=== PATIENT | male | born 1940 | race Two or more races ===

== ENCOUNTER 2021-03-01 21:15 | Inpatient (IN) | payer OTHER ==
[~2021-03-01] VITALS: Ht 182.9 cm; Wt 108.2 kg
[2021-03-01] MEDS ORDERED: SODIUM CHLORIDE 0.9% 500 ML IV ONE (21:45)
[2021-03-01] MEDS ORDERED: PROMETHAZINE HCL 25 MG/ML 1ML IM ONE (21:45)
[2021-03-01 22:50] LABS: Basophils # (auto) 0 10 ^3/uL (0-0.2); Basophils % (auto) 0.1 % (0.0-2.0); Eosinophils # (auto) 0 10 ^3/uL (0-0.8); Eosinophils % (auto) 0.1 % (0.0-7.0); Hematocrit 49.6 % (41.0-53.0); Hemoglobin 15.8 g/dL (13.5-17.5); Lymphocytes # (auto) 0.6 10 ^3/uL (0.4-5.4); Lymphocytes % (auto) 5.3 % (10.0-50.0); Mean Corpuscular Hemoglobin 28.7 pg (28.0-32.0); Mean Corpuscular Hgb Conc. 31.8 g/dL (32.0-36.0); Mean Corpuscular Volume 90.2 fL (80.0-100.0); Monocytes # (auto) 0.6 10 ^3/uL (0-1.3); Monocytes % (auto) 5.6 % (0.0-12.0); Neutrophils # (auto) 9.9 10 ^3/uL (1.6-8.6); Neutrophils % (auto) 88.9 % (37.0-80.0); White Blood Cell 11.1 10^3/uL (4.4-10.8)
[2021-03-01 23:07] LABS: INR 0.97 (0.9-1.15); Partial Thromboplastin Time 25.6 sec (23.6-33.0)
[2021-03-01 23:10] LABS: Alanine Aminotransferase 23 U/L (16-61); Amylase 70 U/L (25-115); Anion Gap 8 (5-15); Aspartate Aminotransferase 20 U/L (15-37); Blood Alcohol < 3.0 mg/dL (0-5); Blood Urea Nitrogen 26 mg/dL (7-18); Calcium 9.2 mg/dL (8.5-10.1); Carbon Dioxide 25 mmol/L (21-32); Chloride 109 mmol/L (98-107); GFR African American 53 mL/min; GFR Non-African American 44 mL/min; Glucose 147 mg/dL (74-106); Lipase 169 U/L (73-393); Magnesium 2.2 mg/dL (1.6-2.6); Potassium 4.4 mmol/L (3.5-5.1); Sodium 142 mmol/L (136-145)
[2021-03-01 23:13] LABS: Lactic Acid w/Reflex 2.3 mmol/L (0.4-2.0)
[2021-03-01 23:14] LABS: Alkaline Phosphatase 100 U/L (45-117); Bilirubin, Total 0.4 mg/dL (0.2-1.0); Total Protein 8.2 g/dL (6.4-8.2)
[2021-03-02 00:47] LABS: Urine Bacteria NONE SEEN /hpf (None Seen); Urine Blood TRACE /uL (Negative); Urine Specific Gravity 1.016 (1.001-1.035); Urine WBC 3 /hpf (0 - 3)
[2021-03-02 00:59] LABS: Alcohol, Urine < 3.0 mg/dL (0-10); Amphetamine Screen, Urine NEGATIVE (NEGATIVE); Barbiturate Scree,Urine NEGATIVE (NEGATIVE); Benzodiazephine Screen, Urine NEGATIVE (NEGATIVE); Cannabinoid Screen, Urine NEGATIVE (NEGATIVE); Cocaine Screen, Urine NEGATIVE (NEGATIVE); Opiate Scree,Urine NEGATIVE (NEGATIVE); Phencyclidine Screen, Urine NEGATIVE (NEGATIVE)
[2021-03-02] MEDS ORDERED: SODIUM CHLORIDE 0.9% 1,000 ML IV ONE (04:30)
[2021-03-02] MEDS ORDERED: LORazepam 2MG/ML-1ML VIAL IM ONE (16:15)
[2021-03-02] MEDS ORDERED: HALOPERIDOL LACTATE 5 MG/ML INJ VIAL IM ONE ×2 (16:15→22:15)
[2021-03-02] MEDS ORDERED: diphenhdrAMINE HCL 50 MG/1 ML VL IV ONE ×2 (16:15→22:15)
[2021-03-02] MEDS ORDERED: HYDROcodone-ACET 5/325MG TAB PO ONE (18:00)
[2021-03-02] MEDS ORDERED: LORazepam 2MG/ML-1ML VIAL IV ONE (22:15)
[2021-03-02] MEDS ORDERED: HYDROmorphone HCL 2 MG/ML VL IV ONE (23:45)
[2021-03-02] MEDS ORDERED: ONDANSETRON HCL 4 MG/2 ML VIAL IV ONE (23:45)
[2021-03-03] MEDS ORDERED: HALOPERIDOL LACTATE 5 MG/ML INJ VIAL IM ONE (21:15)
[2021-03-03] MEDS ORDERED: LORazepam 2MG/ML-1ML VIAL IV ONE (21:15)
[2021-03-03] MEDS ORDERED: diphenhdrAMINE HCL 50 MG/1 ML VL IV ONE (21:15)
[2021-03-03] MEDS ORDERED: cloNIDine HCL 0.1 MG TAB PO ONE (22:00)
[2021-03-04] MEDS ORDERED: diphenhdrAMINE HCL 50 MG/1 ML VL ONE (01:40)
[2021-03-04] MEDS ORDERED: LORazepam 2MG/ML-1ML VIAL ONE (01:41)
[2021-03-04] MEDS ORDERED: diphenhdrAMINE HCL 50 MG/1 ML VL IV ONE (02:00)
[2021-03-04] MEDS ORDERED: LORazepam 2MG/ML-1ML VIAL IV ONE ×3 (02:00→19:00)
[2021-03-04] MEDS ORDERED: ONDANSETRON HCL 4 MG/2 ML VIAL IV ONE (03:15)
[2021-03-04] MEDS ORDERED: HYDROmorphone HCL 2 MG/ML VL IV ONE ×2 (03:15→18:45)
[2021-03-04] MEDS ORDERED: cloNIDine HCL 0.1 MG TAB ONE (15:46)
[2021-03-04] MEDS ORDERED: cloNIDine HCL 0.1 MG TAB PO ONE (16:00)
[2021-03-05] MEDS ORDERED: HYDROmorphone HCL 2 MG/ML VL IV ONE ×2 (01:45→23:00)
[2021-03-05] MEDS ORDERED: LORazepam 2MG/ML-1ML VIAL ONE (10:07)
[2021-03-05] MEDS: LORazepam 2MG/ML-1ML VIAL IV PRN ×2 (10:18→23:33)
[2021-03-05] MEDS ORDERED: cloNIDine HCL 0.1 MG TAB ONE (16:21)
[2021-03-05] MEDS ORDERED: cloNIDine HCL 0.1 MG TAB PO ONE (16:30)
[2021-03-05] MEDS ORDERED: LORazepam 0.5 MG TAB PO ONE (22:45)
[2021-03-05] MEDS ORDERED: HYDROcodone-ACET 5/325MG TAB PO ONE (22:45)
[2021-03-05] MEDS ORDERED: hydrALAZINE HCL 20 MG/ML VL IV ONE (23:45)
[2021-03-06] MEDS ORDERED: HALOPERIDOL LACTATE 5 MG/ML INJ VIAL IM ONE (04:00)
[2021-03-06] MEDS: LORazepam 2MG/ML-1ML VIAL IV PRN (09:10)
[2021-03-06 10:28] LABS: Basophils # (auto) 0 10 ^3/uL (0-0.2); Eosinophils # (auto) 0 10 ^3/uL (0-0.8); Hematocrit 46.1 % (41.0-53.0); Hemoglobin 15.3 g/dL (13.5-17.5); Lymphocytes # (auto) 0.5 10 ^3/uL (0.4-5.4); Lymphocytes % (auto) 4.1 % (10.0-50.0); Mean Corpuscular Hgb Conc. 33.1 g/dL (32.0-36.0); Mean Corpuscular Volume 90.7 fL (80.0-100.0); Monocytes # (auto) 1.5 10 ^3/uL (0-1.3); Monocytes % (auto) 11.8 % (0.0-12.0); Neutrophils # (auto) 10.4 10 ^3/uL (1.6-8.6); Neutrophils % (auto) 84.1 % (37.0-80.0); Red Blood Cells 5.08 10^6/uL (4.5-5.90); Red Cell Distribution Width 15.6 % (11.8-14.3); White Blood Cell 12.4 10^3/uL (4.4-10.8)
[2021-03-06 10:56] LABS: Potassium 3.7 mmol/L (3.5-5.1)
[2021-03-06 11:09] LABS: BUN/Creatinine Ratio 18.9; Bilirubin, Total 0.8 mg/dL (0.2-1.0); Calcium 9.2 mg/dL (8.5-10.1); Total Protein 7.4 g/dL (6.4-8.2)
[2021-03-06] MEDS ORDERED: cefTRIAXone 1GM/50ML D5W 50 ML IV ONE (13:30)
[2021-03-06] MEDS ORDERED: CABE0.5T PO (14:35)
[2021-03-06] MEDS ORDERED: TEMA15CA PO (14:35)
[2021-03-06] MEDS ORDERED: APIX5TAB PO (14:35)
[2021-03-06] MEDS ORDERED: LORA1TAB23 PO (14:35)
[2021-03-06] MEDS ORDERED: LACT10SO3 PO (14:35)
[2021-03-06] MEDS ORDERED: BUSP10TA90 PO (14:35)
[2021-03-06] MEDS ORDERED: HYDR50TA15 PO (14:35)
[2021-03-06] MEDS ORDERED: ATOR40TA52 PO (14:35)
[2021-03-06] MEDS ORDERED: QUET100T47 PO (14:35)
[2021-03-06] MEDS ORDERED: LABE200T6 PO (14:35)
[2021-03-06] MEDS ORDERED: HYDR-4833 PO (14:35)
[2021-03-06] MEDS ORDERED: AMLO-496 PO (14:35)
[2021-03-06] MEDS ORDERED: SENN-79 PO (14:35)
[2021-03-06] MEDS ORDERED: HYDR25TA4 PO (14:35)
[2021-03-06] MEDS ORDERED: LABETALOL HCL 5 MG/ML 4ML SYRINGE IV ONE (16:00)
[2021-03-06] MEDS: SODIUM CHLORIDE 0.9% 1,000 ML IV SCH (16:14)
[2021-03-06] MEDS ORDERED: LORazepam 0.5 MG TAB PO PRN (17:45)
[2021-03-06] MEDS: cefTRIAXone 1GM/50ML D5W 50 ML IV SCH (21:45)
[2021-03-06] MEDS: LABETALOL HCL 200 MG TAB PO SCH (21:47)
[2021-03-06] MEDS: ATORVASTATIN 20 MG TAB PO SCH (21:47)
[2021-03-06] MEDS: busPIRone HCL 10 MG TAB PO SCH (21:47)
[2021-03-06] MEDS: APIXABAN 5 MG TAB PO SCH (21:47)
[2021-03-06] MEDS: QUEtiapine FUMARATE 100 MG TAB PO SCH (21:48)
[2021-03-07] MEDS: SODIUM CHLORIDE 0.9% 1,000 ML IV SCH ×3 (02:11→17:15)
[2021-03-07] MEDS ORDERED: LABETALOL HCL 5 MG/ML 4ML SYRINGE IV ONE ×2 (03:45→05:00)
[2021-03-07] MEDS: LORazepam 2MG/ML-1ML VIAL IV PRN ×2 (05:09→20:19)
[2021-03-07] MEDS: busPIRone HCL 10 MG TAB PO SCH ×3 (06:00→22:45)
[2021-03-07] MEDS ORDERED: LABETALOL HCL 5 MG/ML 4ML SYRINGE IV PRN (08:45)
[2021-03-07] MEDS ORDERED: NITROGLYCERIN 0.4 MG SL TAB SL PRN (08:45)
[2021-03-07] MEDS ORDERED: MORPHINE SULFATE INJECTION 2 MG/ML SYRG IV PRN (08:45)
[2021-03-07 09:27] LABS: Basophils # (auto) 0 10 ^3/uL (0-0.2); Basophils % (auto) 0.2 % (0.0-2.0); Eosinophils # (auto) 0 10 ^3/uL (0-0.8); Lymphocytes # (auto) 0.6 10 ^3/uL (0.4-5.4); Lymphocytes % (auto) 5.4 % (10.0-50.0); Mean Corpuscular Hemoglobin 29.2 pg (28.0-32.0); Mean Corpuscular Hgb Conc. 32.6 g/dL (32.0-36.0); Mean Corpuscular Volume 89.5 fL (80.0-100.0); Monocytes # (auto) 1.6 10 ^3/uL (0-1.3); Monocytes % (auto) 13.2 % (0.0-12.0); Neutrophils # (auto) 9.5 10 ^3/uL (1.6-8.6); Neutrophils % (auto) 81.2 % (37.0-80.0); Red Blood Cells 5.14 10^6/uL (4.5-5.90); Red Cell Distribution Width 15.8 % (11.8-14.3); White Blood Cell 11.8 10^3/uL (4.4-10.8)
[2021-03-07 09:51] LABS: BUN/Creatinine Ratio 23.6; Calcium 9.1 mg/dL (8.5-10.1); Potassium 3.6 mmol/L (3.5-5.1)
[2021-03-07] MEDS: HCTZ 25 MG TAB PO SCH (10:00)
[2021-03-07] MEDS: LABETALOL HCL 200 MG TAB PO SCH ×2 (10:00→22:45)
[2021-03-07] MEDS: amLODIPine BESYLATE 5 MG TAB PO SCH (10:00)
[2021-03-07] MEDS: APIXABAN 5 MG TAB PO SCH ×2 (10:00→22:44)
[2021-03-07] MEDS: cefTRIAXone 1GM/50ML D5W 50 ML IV SCH ×2 (10:14→22:41)
[2021-03-07] MEDS: hydrALAZINE HCL 25 MG TAB PO PRN (11:49)
[2021-03-07] MEDS: HYDROcodone-ACET 5/325MG TAB PO PRN (13:40)
[2021-03-07 17:01] VITALS: BP 124/59
[2021-03-07 22:00] VITALS: BP 156/78
[2021-03-07] MEDS: QUEtiapine FUMARATE 100 MG TAB PO SCH (22:41)
[2021-03-07] MEDS: ATORVASTATIN 20 MG TAB PO SCH (22:41)
[2021-03-08] MEDS: hydrALAZINE HCL 25 MG TAB PO PRN (00:41)
[2021-03-08] MEDS: SODIUM CHLORIDE 0.9% 1,000 ML IV SCH ×2 (02:18→19:05)
[2021-03-08 05:00] VITALS: BP 142/73
[2021-03-08] MEDS: busPIRone HCL 10 MG TAB PO SCH ×4 (05:58→22:25)
[2021-03-08 09:00] VITALS: BP 161/101
[2021-03-08] MEDS: APIXABAN 5 MG TAB PO SCH ×2 (09:11→22:25)
[2021-03-08] MEDS: cefTRIAXone 1GM/50ML D5W 50 ML IV SCH (09:11)
[2021-03-08] MEDS: HCTZ 25 MG TAB PO SCH (09:12)
[2021-03-08] MEDS: amLODIPine BESYLATE 5 MG TAB PO SCH (09:15)
[2021-03-08] MEDS: LABETALOL HCL 200 MG TAB PO SCH ×2 (09:15→22:26)
[2021-03-08 11:40] LABS: Basophils # (auto) 0 10 ^3/uL (0-0.2); Basophils % (auto) 0.1 % (0.0-2.0); Eosinophils # (auto) 0 10 ^3/uL (0-0.8); Eosinophils % (auto) 0.1 % (0.0-7.0); Hematocrit 41.3 % (41.0-53.0); Hemoglobin 13.6 g/dL (13.5-17.5); Lymphocytes # (auto) 0.6 10 ^3/uL (0.4-5.4); Lymphocytes % (auto) 7.1 % (10.0-50.0); Mean Corpuscular Hemoglobin 29.6 pg (28.0-32.0); Mean Corpuscular Hgb Conc. 32.9 g/dL (32.0-36.0); Mean Corpuscular Volume 90.1 fL (80.0-100.0); Monocytes % (auto) 11.7 % (0.0-12.0); Neutrophils # (auto) 7.2 10 ^3/uL (1.6-8.6); Nucleated Red Blood Cells % 0.1 %; Red Blood Cells 4.59 10^6/uL (4.5-5.90); Red Cell Distribution Width 16.2 % (11.8-14.3); White Blood Cell 8.9 10^3/uL (4.4-10.8)
[2021-03-08 11:53] LABS: BUN/Creatinine Ratio 29.5; Calcium 8.5 mg/dL (8.5-10.1); Potassium 3.4 mmol/L (3.5-5.1)
[2021-03-08 13:00] VITALS: BP 132/75
[2021-03-08 16:45] VITALS: BP 146/71
[2021-03-08] MEDS: HYDROcodone-ACET 5/325MG TAB PO PRN (20:13)
[2021-03-08 22:00] VITALS: BP 159/71
[2021-03-08] MEDS: QUEtiapine FUMARATE 100 MG TAB PO SCH (22:25)
[2021-03-08] MEDS: ATORVASTATIN 20 MG TAB PO SCH (22:25)
[2021-03-09] VITALS (8 sets, daily range): BP systolic 119–155; BP diastolic 56–102
[2021-03-09] MEDS: SODIUM CHLORIDE 0.9% 1,000 ML IV SCH ×3 (04:09→23:42)
[2021-03-09] MEDS: HYDROcodone-ACET 5/325MG TAB PO PRN ×2 (05:23→12:23)
[2021-03-09] MEDS: busPIRone HCL 10 MG TAB PO SCH ×3 (05:23→21:59)
[2021-03-09 08:05] LABS: Basophils # (auto) 0 10 ^3/uL (0-0.2); Basophils % (auto) 0.4 % (0.0-2.0); Eosinophils # (auto) 0 10 ^3/uL (0-0.8); Eosinophils % (auto) 0.6 % (0.0-7.0); Hematocrit 39.4 % (41.0-53.0); Lymphocytes # (auto) 0.6 10 ^3/uL (0.4-5.4); Lymphocytes % (auto) 8.6 % (10.0-50.0); Mean Corpuscular Hemoglobin 29.3 pg (28.0-32.0); Mean Corpuscular Hgb Conc. 33.1 g/dL (32.0-36.0); Mean Corpuscular Volume 88.7 fL (80.0-100.0); Monocytes # (auto) 0.9 10 ^3/uL (0-1.3); Monocytes % (auto) 12.4 % (0.0-12.0); Neutrophils # (auto) 5.8 10 ^3/uL (1.6-8.6); Red Blood Cells 4.44 10^6/uL (4.5-5.90); Red Cell Distribution Width 16.1 % (11.8-14.3); White Blood Cell 7.4 10^3/uL (4.4-10.8)
[2021-03-09 08:16] LABS: BUN/Creatinine Ratio 30.6; Calcium 8.5 mg/dL (8.5-10.1); Potassium 3.2 mmol/L (3.5-5.1)
[2021-03-09] MEDS: cefTRIAXone 1GM/50ML D5W 50 ML IV SCH (11:01)
[2021-03-09] MEDS: LABETALOL HCL 200 MG TAB PO SCH ×2 (11:01→22:01)
[2021-03-09] MEDS: APIXABAN 5 MG TAB PO SCH ×2 (11:02→21:59)
[2021-03-09] MEDS: HCTZ 25 MG TAB PO SCH (11:02)
[2021-03-09] MEDS: amLODIPine BESYLATE 5 MG TAB PO SCH (11:02)
[2021-03-09] MEDS: CABERGOLINE 0.5 MG PO SCH (12:00)
[2021-03-09] MEDS ORDERED: HALOPERIDOL 1 MG TAB PO PRN (13:30)
[2021-03-09] MEDS: QUEtiapine FUMARATE 100 MG TAB PO SCH (22:01)
[2021-03-09] MEDS: ATORVASTATIN 20 MG TAB PO SCH (22:01)
[2021-03-10 04:30] VITALS: BP 139/80
[2021-03-10] MEDS: busPIRone HCL 10 MG TAB PO SCH ×3 (06:09→21:49)
[2021-03-10 07:12] LABS: Basophils # (auto) 0 10 ^3/uL (0-0.2); Basophils % (auto) 0.2 % (0.0-2.0); Eosinophils # (auto) 0 10 ^3/uL (0-0.8); Eosinophils % (auto) 0.5 % (0.0-7.0); Hemoglobin 13.1 g/dL (13.5-17.5); Lymphocytes # (auto) 0.7 10 ^3/uL (0.4-5.4); Lymphocytes % (auto) 9.7 % (10.0-50.0); Mean Corpuscular Hemoglobin 29.8 pg (28.0-32.0); Mean Corpuscular Hgb Conc. 33.5 g/dL (32.0-36.0); Mean Corpuscular Volume 88.9 fL (80.0-100.0); Monocytes % (auto) 14.1 % (0.0-12.0); Neutrophils # (auto) 5.6 10 ^3/uL (1.6-8.6); Neutrophils % (auto) 75.5 % (37.0-80.0); Red Blood Cells 4.38 10^6/uL (4.5-5.90); Red Cell Distribution Width 15.6 % (11.8-14.3); White Blood Cell 7.4 10^3/uL (4.4-10.8)
[2021-03-10 07:15] LABS: Potassium 3.2 mmol/L (3.5-5.1)
[2021-03-10 07:48] LABS: Albumin 2.1 g/dL (3.4-5.0); BUN/Creatinine Ratio 23.5; Bilirubin, Total 0.6 mg/dL (0.2-1.0); Calcium 8.8 mg/dL (8.5-10.1); Total Protein 5.5 g/dL (6.4-8.2)
[2021-03-10 08:00] VITALS: BP 177/87
[2021-03-10 09:00] VITALS: BP 165/81
[2021-03-10] MEDS: cefTRIAXone 1GM/50ML D5W 50 ML IV SCH (09:21)
[2021-03-10] MEDS: amLODIPine BESYLATE 5 MG TAB PO SCH (09:22)
[2021-03-10] MEDS: APIXABAN 5 MG TAB PO SCH ×2 (09:22→21:49)
[2021-03-10] MEDS: HCTZ 25 MG TAB PO SCH (09:22)
[2021-03-10] MEDS: LABETALOL HCL 200 MG TAB PO SCH ×2 (09:23→21:50)
[2021-03-10] MEDS: SODIUM CHLORIDE 0.9% 1,000 ML IV SCH (11:12)
[2021-03-10] MEDS ORDERED: LORazepam 2MG/ML-1ML VIAL IV ONE (12:45)
[2021-03-10 13:00] VITALS: BP 129/63
[2021-03-10] MEDS: HYDROcodone-ACET 5/325MG TAB PO PRN (14:12)
[2021-03-10 17:00] VITALS: BP 136/63
[2021-03-10] MEDS: QUEtiapine FUMARATE 100 MG TAB PO SCH (21:49)
[2021-03-10] MEDS: ATORVASTATIN 20 MG TAB PO SCH (21:49)
[2021-03-10 22:00] VITALS: BP 173/71
[2021-03-11] MEDS: SODIUM CHLORIDE 0.9% 1,000 ML IV SCH ×4 (00:23→22:22)
[2021-03-11 05:00] VITALS: BP 157/77
[2021-03-11] MEDS: busPIRone HCL 10 MG TAB PO SCH ×3 (05:58→22:21)
[2021-03-11 07:15] LABS: Basophils # (auto) 0 10 ^3/uL (0-0.2); Basophils % (auto) 0.5 % (0.0-2.0); Eosinophils # (auto) 0.1 10 ^3/uL (0-0.8); Eosinophils % (auto) 1.1 % (0.0-7.0); Hematocrit 39.5 % (41.0-53.0); Hemoglobin 13.1 g/dL (13.5-17.5); Lymphocytes # (auto) 0.7 10 ^3/uL (0.4-5.4); Lymphocytes % (auto) 9.2 % (10.0-50.0); Mean Corpuscular Hemoglobin 29.9 pg (28.0-32.0); Mean Corpuscular Hgb Conc. 33.2 g/dL (32.0-36.0); Monocytes % (auto) 13.5 % (0.0-12.0); Neutrophils # (auto) 5.9 10 ^3/uL (1.6-8.6); Neutrophils % (auto) 75.7 % (37.0-80.0); Red Blood Cells 4.39 10^6/uL (4.5-5.90); White Blood Cell 7.8 10^3/uL (4.4-10.8)
[2021-03-11 07:35] LABS: Sodium 143 mmol/L (136-145)
[2021-03-11 07:36] LABS: Anion Gap 9 (5-15); BUN/Creatinine Ratio 23.9; Blood Urea Nitrogen 22 mg/dL (7-18); Calcium 8.3 mg/dL (8.5-10.1); Carbon Dioxide 23 mmol/L (21-32); Chloride 111 mmol/L (98-107); GFR African American 102 mL/min; GFR Non-African American 85 mL/min; Glucose 118 mg/dL (74-106); Potassium 3.1 mmol/L (3.5-5.1)
[2021-03-11 09:00] VITALS: BP 148/87
[2021-03-11] MEDS: amLODIPine BESYLATE 5 MG TAB PO SCH (09:05)
[2021-03-11] MEDS: HYDROcodone-ACET 5/325MG TAB PO PRN ×2 (09:06→16:22)
[2021-03-11] MEDS: HCTZ 25 MG TAB PO SCH (09:06)
[2021-03-11] MEDS: APIXABAN 5 MG TAB PO SCH ×2 (09:06→22:21)
[2021-03-11] MEDS: cefTRIAXone 1GM/50ML D5W 50 ML IV SCH (09:07)
[2021-03-11] MEDS: LABETALOL HCL 200 MG TAB PO SCH ×2 (09:07→22:21)
[2021-03-11 13:00] VITALS: BP 115/47
[2021-03-11 17:00] VITALS: BP 151/65
[2021-03-11 22:00] VITALS: BP 163/71
[2021-03-11] MEDS ORDERED: POTASSIUM CHL 20 Meq TABLET PO ONE (22:15)
[2021-03-11] MEDS: ATORVASTATIN 20 MG TAB PO SCH (22:18)
[2021-03-11] MEDS: QUEtiapine FUMARATE 100 MG TAB PO SCH (22:21)
[2021-03-12 05:00] VITALS: BP 156/67
[2021-03-12 06:00] LABS: Basophils # (auto) 0 10 ^3/uL (0-0.2); Basophils % (auto) 0.2 % (0.0-2.0); Eosinophils # (auto) 0.2 10 ^3/uL (0-0.8); Eosinophils % (auto) 2.7 % (0.0-7.0); Hematocrit 37.4 % (41.0-53.0); Hemoglobin 12.5 g/dL (13.5-17.5); Lymphocytes # (auto) 0.8 10 ^3/uL (0.4-5.4); Lymphocytes % (auto) 9.1 % (10.0-50.0); Mean Corpuscular Hemoglobin 29.8 pg (28.0-32.0); Mean Corpuscular Hgb Conc. 33.4 g/dL (32.0-36.0); Mean Corpuscular Volume 89.1 fL (80.0-100.0); Monocytes # (auto) 1.1 10 ^3/uL (0-1.3); Monocytes % (auto) 12.3 % (0.0-12.0); Neutrophils # (auto) 6.6 10 ^3/uL (1.6-8.6); Neutrophils % (auto) 75.7 % (37.0-80.0); Nucleated Red Blood Cells % 0.1 %; Red Blood Cells 4.19 10^6/uL (4.5-5.90); Red Cell Distribution Width 15.8 % (11.8-14.3); White Blood Cell 8.6 10^3/uL (4.4-10.8)
[2021-03-12] MEDS: busPIRone HCL 10 MG TAB PO SCH ×3 (06:03→22:07)
[2021-03-12] MEDS: HYDROcodone-ACET 5/325MG TAB PO PRN ×2 (06:08→16:48)
[2021-03-12 06:18] LABS: Potassium 3.4 mmol/L (3.5-5.1)
[2021-03-12 06:28] LABS: Calcium 8.5 mg/dL (8.5-10.1)
[2021-03-12 08:00] VITALS: BP 158/82
[2021-03-12] MEDS: cefTRIAXone 1GM/50ML D5W 50 ML IV SCH (09:16)
[2021-03-12] MEDS: amLODIPine BESYLATE 5 MG TAB PO SCH (09:17)
[2021-03-12] MEDS: LABETALOL HCL 200 MG TAB PO SCH ×2 (09:17→22:07)
[2021-03-12] MEDS: HCTZ 25 MG TAB PO SCH (09:18)
[2021-03-12] MEDS: APIXABAN 5 MG TAB PO SCH ×2 (09:18→22:06)
[2021-03-12] MEDS ORDERED: POTASSIUM CHL 20 Meq TABLET PO ONE (11:45)
[2021-03-12 12:00] VITALS: BP 144/66
[2021-03-12] MEDS: CABERGOLINE 0.5 MG PO SCH (12:00)
[2021-03-12] MEDS: SODIUM CHLORIDE 0.9% 1,000 ML IV SCH ×2 (12:00→22:19)
[2021-03-12] MEDS: SENNA 8.6 MG TAB PO PRN (13:20)
[2021-03-12 16:00] VITALS: BP 133/51
[2021-03-12] MEDS: HALOPERIDOL LACTATE 5 MG/ML INJ VIAL IM PRN (21:58)
[2021-03-12 22:00] VITALS: BP 122/79
[2021-03-12] MEDS: ATORVASTATIN 20 MG TAB PO SCH (22:06)
[2021-03-12] MEDS: QUEtiapine FUMARATE 100 MG TAB PO SCH (22:07)
[2021-03-12] MEDS: NYSTATIN TOPICAL POWDER 15GM TOP SCH (22:08)
[2021-03-13 05:00] VITALS: BP 142/63
[2021-03-13] MEDS: busPIRone HCL 10 MG TAB PO SCH ×3 (05:47→20:12)
[2021-03-13 09:00] VITALS: BP 141/67
[2021-03-13] MEDS: cefTRIAXone 1GM/50ML D5W 50 ML IV SCH (09:26)
[2021-03-13] MEDS: APIXABAN 5 MG TAB PO SCH ×2 (09:26→22:00)
[2021-03-13] MEDS: HCTZ 25 MG TAB PO SCH (09:27)
[2021-03-13] MEDS: NYSTATIN TOPICAL POWDER 15GM TOP SCH ×2 (09:29→22:01)
[2021-03-13] MEDS: amLODIPine BESYLATE 5 MG TAB PO SCH (09:29)
[2021-03-13] MEDS: LABETALOL HCL 200 MG TAB PO SCH ×2 (09:30→22:01)
[2021-03-13] MEDS: SODIUM CHLORIDE 0.9% 1,000 ML IV SCH ×2 (09:54→18:00)
[2021-03-13 13:00] VITALS: BP 147/64
[2021-03-13] MEDS: SENNA 8.6 MG TAB PO PRN (14:28)
[2021-03-13 16:59] VITALS: BP 161/82
[2021-03-13] MEDS: QUEtiapine FUMARATE 100 MG TAB PO SCH (20:12)
[2021-03-13] MEDS: HYDROcodone-ACET 5/325MG TAB PO PRN (20:13)
[2021-03-13] MEDS: ATORVASTATIN 20 MG TAB PO SCH (22:01)
[2021-03-13 22:02] VITALS: BP 160/69
[2021-03-14] MEDS: HALOPERIDOL LACTATE 5 MG/ML INJ VIAL IM PRN ×2 (01:21→20:20)
[2021-03-14] MEDS: SODIUM CHLORIDE 0.9% 1,000 ML IV SCH (04:00)
[2021-03-14] MEDS: busPIRone HCL 10 MG TAB PO SCH ×3 (06:57→22:51)
[2021-03-14 09:00] VITALS: BP 153/74
[2021-03-14] MEDS: HCTZ 25 MG TAB PO SCH (10:13)
[2021-03-14] MEDS: amLODIPine BESYLATE 5 MG TAB PO SCH (10:13)
[2021-03-14] MEDS: LABETALOL HCL 200 MG TAB PO SCH ×2 (10:13→22:53)
[2021-03-14] MEDS: APIXABAN 5 MG TAB PO SCH ×2 (10:13→22:52)
[2021-03-14] MEDS: NYSTATIN TOPICAL POWDER 15GM TOP SCH ×2 (10:14→22:53)
[2021-03-14 13:00] VITALS: BP 145/69
[2021-03-14 16:42] VITALS: BP 147/68
[2021-03-14 22:00] VITALS: BP 145/65
[2021-03-14] MEDS: ATORVASTATIN 20 MG TAB PO SCH (22:52)
[2021-03-14] MEDS: QUEtiapine FUMARATE 100 MG TAB PO SCH (22:53)
[2021-03-15 05:00] VITALS: BP 117/66
[2021-03-15] MEDS: busPIRone HCL 10 MG TAB PO SCH ×3 (06:00→21:22)
[2021-03-15 09:20] VITALS: BP 134/63
[2021-03-15] MEDS: LABETALOL HCL 200 MG TAB PO SCH ×2 (09:28→21:24)
[2021-03-15] MEDS: APIXABAN 5 MG TAB PO SCH ×2 (09:28→21:23)
[2021-03-15] MEDS: HCTZ 25 MG TAB PO SCH (09:29)
[2021-03-15] MEDS: amLODIPine BESYLATE 5 MG TAB PO SCH (09:29)
[2021-03-15] MEDS: NYSTATIN TOPICAL POWDER 15GM TOP SCH ×2 (09:30→21:25)
[2021-03-15] MEDS: CABERGOLINE 0.5 MG PO SCH (12:00)
[2021-03-15 13:00] VITALS: BP 142/70
[2021-03-15] MEDS: ATORVASTATIN 20 MG TAB PO SCH (21:23)
[2021-03-15] MEDS: QUEtiapine FUMARATE 100 MG TAB PO SCH (21:24)
[2021-03-15 22:00] VITALS: BP 138/62
[2021-03-16] MEDS: HALOPERIDOL LACTATE 5 MG/ML INJ VIAL IM PRN (03:20)
[2021-03-16 05:00] VITALS: BP 147/72
[2021-03-16] MEDS: busPIRone HCL 10 MG TAB PO SCH ×3 (06:17→21:28)
[2021-03-16 09:00] VITALS: BP 146/68
[2021-03-16 09:20] LABS: Basophils # (auto) 0.1 10 ^3/uL (0-0.2); Basophils % (auto) 0.6 % (0.0-2.0); Eosinophils # (auto) 0.1 10 ^3/uL (0-0.8); Eosinophils % (auto) 1.2 % (0.0-7.0); Hematocrit 37.1 % (41.0-53.0); Hemoglobin 12.2 g/dL (13.5-17.5); Lymphocytes # (auto) 0.8 10 ^3/uL (0.4-5.4); Lymphocytes % (auto) 7.6 % (10.0-50.0); Mean Corpuscular Hgb Conc. 32.9 g/dL (32.0-36.0); Mean Corpuscular Volume 88.1 fL (80.0-100.0); Monocytes # (auto) 1.1 10 ^3/uL (0-1.3); Monocytes % (auto) 10.6 % (0.0-12.0); Nucleated Red Blood Cells % 0.1 %; Red Blood Cells 4.21 10^6/uL (4.5-5.90); Red Cell Distribution Width 15.9 % (11.8-14.3)
[2021-03-16 09:42] LABS: Albumin 1.8 g/dL (3.4-5.0); Calcium 8.4 mg/dL (8.5-10.1); Potassium 3.1 mmol/L (3.5-5.1)
[2021-03-16 09:46] LABS: Bilirubin, Total 0.8 mg/dL (0.2-1.0); Total Protein 5.4 g/dL (6.4-8.2)
[2021-03-16] MEDS: NYSTATIN TOPICAL POWDER 15GM TOP SCH ×2 (10:00→22:02)
[2021-03-16 13:00] VITALS: BP 137/63
[2021-03-16] MEDS: APIXABAN 5 MG TAB PO SCH ×2 (13:29→21:28)
[2021-03-16] MEDS: amLODIPine BESYLATE 5 MG TAB PO SCH (13:30)
[2021-03-16] MEDS: LABETALOL HCL 200 MG TAB PO SCH ×2 (13:30→21:50)
[2021-03-16] MEDS: HCTZ 25 MG TAB PO SCH (13:31)
[2021-03-16 17:00] VITALS: BP 139/62
[2021-03-16] MEDS: QUEtiapine FUMARATE 100 MG TAB PO SCH (21:28)
[2021-03-16] MEDS: ATORVASTATIN 20 MG TAB PO SCH (21:28)
[2021-03-17] MEDS: busPIRone HCL 10 MG TAB PO SCH ×3 (05:41→22:07)
[2021-03-17] MEDS ORDERED: POTASSIUM CHL 20 Meq TABLET PO ONE (06:45)
[2021-03-17] MEDS: amLODIPine BESYLATE 5 MG TAB PO SCH (09:03)
[2021-03-17] MEDS: LABETALOL HCL 200 MG TAB PO SCH ×2 (09:04→22:09)
[2021-03-17] MEDS: HCTZ 25 MG TAB PO SCH (09:04)
[2021-03-17] MEDS: APIXABAN 5 MG TAB PO SCH ×2 (09:05→22:07)
[2021-03-17] MEDS: NYSTATIN TOPICAL POWDER 15GM TOP SCH ×2 (09:14→22:09)
[2021-03-17 22:00] VITALS: BP 149/61
[2021-03-17] MEDS: ATORVASTATIN 20 MG TAB PO SCH (22:07)
[2021-03-17] MEDS: QUEtiapine FUMARATE 100 MG TAB PO SCH (22:09)
[2021-03-18 04:58] VITALS: BP 144/61
[2021-03-18] MEDS: busPIRone HCL 10 MG TAB PO SCH ×3 (06:52→21:30)
[2021-03-18] MEDS: APIXABAN 5 MG TAB PO SCH ×2 (08:11→21:33)
[2021-03-18] MEDS: HCTZ 25 MG TAB PO SCH (08:12)
[2021-03-18] MEDS: NYSTATIN TOPICAL POWDER 15GM TOP SCH ×2 (08:13→21:37)
[2021-03-18] MEDS: amLODIPine BESYLATE 5 MG TAB PO SCH (08:13)
[2021-03-18] MEDS: LABETALOL HCL 200 MG TAB PO SCH ×2 (08:14→21:39)
[2021-03-18 09:40] VITALS: BP 134/58
[2021-03-18] MEDS: CABERGOLINE 0.5 MG PO SCH (12:00)
[2021-03-18 12:55] VITALS: BP 122/53
[2021-03-18 17:00] VITALS: BP 142/69
[2021-03-18] MEDS: ATORVASTATIN 20 MG TAB PO SCH (21:34)
[2021-03-18] MEDS: QUEtiapine FUMARATE 100 MG TAB PO SCH (21:37)
[2021-03-18] MEDS: ACETAMINOPHEN 325 MG TAB PO PRN (21:38)
[2021-03-18 21:45] VITALS: BP 122/77
[2021-03-18] MEDS: HALOPERIDOL LACTATE 5 MG/ML INJ VIAL IM PRN (23:04)
[2021-03-19 05:00] VITALS: BP 134/69
[2021-03-19] MEDS: busPIRone HCL 10 MG TAB PO SCH ×3 (06:45→21:41)
[2021-03-19 09:00] VITALS: BP 133/68
[2021-03-19] MEDS: LABETALOL HCL 200 MG TAB PO SCH ×2 (11:06→21:42)
[2021-03-19] MEDS: APIXABAN 5 MG TAB PO SCH ×2 (11:06→21:41)
[2021-03-19] MEDS: NYSTATIN TOPICAL POWDER 15GM TOP SCH ×2 (11:07→21:41)
[2021-03-19] MEDS: HCTZ 25 MG TAB PO SCH (11:07)
[2021-03-19] MEDS: amLODIPine BESYLATE 5 MG TAB PO SCH (11:07)
[2021-03-19] MEDS: ACETAMINOPHEN 325 MG TAB PO PRN ×2 (11:08→20:19)
[2021-03-19 15:50] VITALS: BP 135/54
[2021-03-19] MEDS: Ensure HIGH Protein Chocolate 8oz Bottle PO SCH (17:57)
[2021-03-19] MEDS: ATORVASTATIN 20 MG TAB PO SCH (21:41)
[2021-03-19] MEDS: QUEtiapine FUMARATE 100 MG TAB PO SCH (21:41)
[2021-03-19 22:00] VITALS: BP 126/72
[2021-03-20 05:00] VITALS: BP 147/71
[2021-03-20] MEDS: busPIRone HCL 10 MG TAB PO SCH ×2 (05:36→14:00)
[2021-03-20] MEDS: ACETAMINOPHEN 325 MG TAB PO PRN ×2 (06:00→15:18)
[2021-03-20] MEDS: Ensure HIGH Protein Chocolate 8oz Bottle PO SCH ×2 (08:00→12:00)
[2021-03-20 09:00] VITALS: BP 150/73
[2021-03-20] MEDS: NYSTATIN TOPICAL POWDER 15GM TOP SCH (10:00)
[2021-03-20] MEDS: amLODIPine BESYLATE 5 MG TAB PO SCH (11:15)
[2021-03-20] MEDS: LABETALOL HCL 200 MG TAB PO SCH (11:16)
[2021-03-20] MEDS: HCTZ 25 MG TAB PO SCH (11:16)
[2021-03-20] MEDS: APIXABAN 5 MG TAB PO SCH (11:16)
[2021-03-20 13:00] VITALS: BP 108/54
[2021-03-20 16:43] VITALS: BP 121/63
[2021-03-20] MEDS ORDERED: Ensure HIGH Protein Chocolate 8oz Bottle PO SCH (18:00)
[2021-03-20 18:22] VITALS: BP 108/54
== END 2021-03-20 19:18 | disposition hospice, inpatient (51) | DRG 92 ==
LOC: ER 21:16 → TELE 21:17 → TELE-WESTW 03-07 15:57 → WEST WING 03-12 22:51
PROVIDERS: ADMIT Internal Medicine; ATTEND Internal Medicine
PROC: 05HD33Z Insertion of Infusion Device into Right Cephalic Vein, Percutaneous Approach (ICD-10-PCS; principal; 2021-03-07)
PROC: B54MZZA Ultrasonography of Right Upper Extremity Veins, Guidance (ICD-10-PCS; 2021-03-07)
DX: G92.9 Unspecified toxic encephalopathy (principal); N17.9 Acute kidney failure, unspecified; E86.0 Dehydration; I10 Essential (primary) hypertension; E78.5 Hyperlipidemia, unspecified; F03.90 Unspecified dementia, unspecified severity, without behavioral disturbance, psychotic disturbance, mood disturbance, and anxiety; F41.9 Anxiety disorder, unspecified; G47.00 Insomnia, unspecified; Z59.00 Homelessness unspecified; Z79.01 Long term (current) use of anticoagulants; Z79.899 Other long term (current) drug therapy
CPT/HCPCS: 36415; 70450; 71045; 73030; 74176; 80048; 80053; 80307; 80320; 81001; 82140; 82150; 83605; 83690; 83735; 84443; 84484; 85025; 85610; 85730; 87086; 87426; 93005; 96361; 96372; 96374; 97110; 97116; 97530; G0378; J0696; J2405; J3490